=== PATIENT | male | born 1940 | race Caucasian/White ===

== ENCOUNTER → 2021-04-30 17:06 | Outpatient (CLI) | payer MEDICARE, OTHER, SELFPAY ==
--- NOTE | 2021-04-30 | IMM_PTH ---
PATIENT: [address]MA [address] LOC: [facility] U#:[id number] AGE/SX: 84/M ROOM: RE04/30/[address]: Dr. Kamar Payne MD : 1940 BED: DIS: SPEC #: [id number] RECD: 05/02/21 13:10 STATUS: SALVATORE REIsidoro #: [id number] BROOKE: 04/30/21 00:[address]: Kamar Payne DEPT: IMMUNOHISTOCHEMISTRY RECD BY: Bel Vidal ENTERED: 05/02/21 13:11 SP TYPE: IMMUNO OTHR DR: Dr. Weston Morris MD Tissues: D - PROSTATE LEFT E - PROSTATE LEFT Procedures: 34BE12 (add) P40 (add) 34BE12 (initial) PHYSICIAN & INSTITUTION [place] [id number] SPECIMEN INFORMATION: Tissue Source: D - Left prostate, apex, core biopsy, E - Left prostate, mid, core biopsy Clinical Info: R97.20 Specimen Number: CPT code: 03715, 31787 x3 METHODOLOGY: Deparaffinized sections of prefer/formalin-fixed tissue or PAP/DQ stained slides are incubated with monoclonal/polyclonal antibodies/oligonucleotide probes. Localization is made via biotin free immunoperoxidase method. Appropriate controls are performed and reacted as expected. Results on target cell population are indicated in the following table: RESULTS: ANTIBODY / CLONE RESULT Block D P40 (BC28) negative 34BE12 (34BE12) negative Block E P40 (BC28) positive 34BE12 (34BE12) positive These tests were developed and their performance characteristics determined by [facility]. They may not have been cleared or approved by the U.S. Food and Drug Administration. The FDA has determined that such clearance or approval is not necessary. The above immunohistochemical/dualISH markers are ordered and reviewed by the Pathologist. INTERPRETATION: D. Left prostate, apex, core biopsy: A minute focus of adenocarcinoma. E. Left prostate, mid, core biopsy: Negative for malignancy. SJ:ike 05/03/2021
--- NOTE | 2021-04-30 08:00 | PROSBIL_PTH ---
PATIENT: [address]MA [address] LOC: [facility]AN U#:[id number] AGE/SX: 84/M ROOM: RE04/30/[address]: Dr. Kamar Payne MD : 1940 BED: DIS: SPEC #: [id number] RECD: 04/30/21 16:35 STATUS: SALVATORE NEY #: [id number] BROOKE: 04/30/21 08:[address]: Kamar Payne DEPT: SURGICAL PATHOLOGY RECD BY: Ileana Yoder ENTERED: 05/01/21 09:36 SP TYPE: PROST BX JORGITO DR: Dr. Weston Morris MD Tissues: A - PROSTATE RIGHT B - PROSTATE RIGHT C - PROSTATE RIGHT D - PROSTATE LEFT E - PROSTATE LEFT F - PROSTATE LEFT Procedures: PROSTATE BX HEADER OPERATION: Prostate biopsy PRE-OP DIAGNOSIS: R97.20 TISSUE SUBMITTED: A - Right apex, B - Right mid, C - Right base, D - Left apex, E - Left mid, F - Left base MICROSCOPIC DIAGNOSIS A. Right prostate, apex, core biopsy: Prostatic adenocarcinoma. [place] grade: 3+4=7 Number of cores involved: 1/1 Proportion of tissue involved: ~70% Perineural invasion: Not identified. Greatest tumor length: 0.6 cm B. Right prostate, mid, core biopsy: Prostatic adenocarcinoma. Jacobo grade: 3+4=7 Number of cores involved: 1/1 Proportion of tissue involved: >90% Perineural invasion: Present. Greatest tumor length: 1 cm Acute and chronic inflammation. C. Right prostate, base, core biopsy: Prostatic adenocarcinoma. [place] grade: 4+3=7 Number of cores involved: 1/1 Proportion of tissue involved: ~60% Perineural invasion: Present. Greatest tumor length: 0.5 cm Acute and chronic inflammation. D. Left prostate, apex, core biopsy: A minute focus of prostatic adenocarcinoma. [place] grade: 3+3=6 Number of cores involved: 1/1 Proportion of tissue involved: <5% Perineural invasion: Not identified. Greatest tumor length: 0.1 cm Acute and chronic inflammation. See comment. E. Left prostate, mid, core biopsy: Prostatic tissue, negative for malignancy. Focal chronic inflammation. See comment. F. Left prostate, base, core biopsy: Prostatic adenocarcinoma. [place] grade: 3+4=7 Number of cores involved: 1/1 Proportion of tissue involved: ~15-20% Perineural invasion: Not identified. Greatest tumor length: 0.2 cm SJ:ike 05/02/2021 COMMENT D & E. Immunohistochemistry ([id number]) supports the above diagnosis. MICROSCOPIC DESCRIPTION Slides are reviewed. GROSS DESCRIPTION A - Received is one container designated prostate, right apex. The specimen consists of one elongated fragment of light hernandez-white soft tissue measuring 1 cm in length and 0.1 cm in diameter. The specimen is totally submitted in one cassette. B - Received is one container designated prostate, right mid. The specimen consists of one elongated fragment of light hernandez-white soft tissue measuring 1.2 cm in length and 0.1 cm in diameter. The specimen is totally submitted in one cassette. C - Received is one container designated prostate, right base. The specimen consists of one elongated fragment of light hernandez-white soft tissue measuring 1.2 cm in length and 0.1 cm in diameter. The specimen is totally submitted in one cassette. D - Received is one container designated prostate, left apex. The specimen consists of one elongated fragment of light hernandez-white soft tissue measuring 0.5 cm in length and 0.1 cm in diameter. The specimen is totally submitted in one cassette. E - Received is one container designated prostate, left mid. The specimen consists of one elongated fragment of light hernandez-white soft tissue measuring 0.7 cm in length and 0.1 cm in diameter. The specimen is totally submitted in one cassette. F - Received is one container designated prostate, left base. The specimen consists of one elongated fragment of light hernandez-white soft tissue measuring 1 cm in length and 0.1 cm in diameter. The specimen is totally submitted in one cassette. / MIKY:ike 05/01/21 TC:0 CPT: G0146
== END ==
PROVIDERS: PCP Family Medicine; Visit Provider Urology
DX: C61 Malignant neoplasm of prostate (principal); R97.20 Elevated prostate specific antigen [PSA]
CPT/HCPCS: 88305; 88341; 88342; G0416

== ENCOUNTER → 2021-05-13 07:43 | Outpatient (CLI) | payer MEDICARE, OTHER, SELFPAY ==
--- NOTE | 2021-05-13 07:50 | NM_ITS ---
CLINICAL: 80-year-old male with history of carcinoma of the prostate. WHOLE BODY 99m Tc MDP RADIONUCLIDE BONE SCINTIGRAPHY COMPARISON: None available FINDINGS: Following the intravenous administration of 24.1 mCi of 99m Tc MDP, whole body bone images reveal: 1. Increased radiopharmaceutical concentration is demonstrated in the mid cervical spine posteriorly on the right, acromioclavicular, sternoclavicular and glenohumeral compartments of both shoulders, wrist articulations bilaterally, the right and left knees, both ankles, left midfoot, bilateral forefoot, several thoracic vertebra to include the first, third and 10th thoracic vertebra posteriorly on the left and right, 12th thoracic vertebra posteriorly on the left, the left sacroiliac joint. 2. Mild facilitated uptake is observed in the left posterior lateral ninth rib. 3. The remaining skeletal structures are scintigraphically unremarkable with normal-appearing renal images and urinary bladder activity identified. NM/Bone Scan Whole Body IMPRESSION: 1. The increase in radiopharmaceutical concentration identified in the cervical and thoracic spine, left sacroiliac joint, bilateral shoulders and wrists, both knees, ankles bilaterally, the left midfoot, right-left forefoot is most consistent with degenerative arthritis. 2. Enhanced radiotracer distribution observed in the left posterior lateral ninth rib is most consistent with trauma-fracture. Electronically Signed: Jl Mora DO at 22:21 EST Tel , Service support ,
== END ==
PROVIDERS: PCP Family Medicine; Referring Provider Urology; Visit Provider Urology
DX: C61 Malignant neoplasm of prostate (principal)
CPT/HCPCS: 78306; A9503

== ENCOUNTER 2021-06-14 06:21 | Day surgery (SDC) | payer MEDICARE, SELFPAY ==
[2021-06-14 07:20] VITALS: BP 153/81; PULSE 78; RESP 18; TEMP 35.9; O2SAT 99; BMI 32.2
[2021-06-14] MEDS: Lactated Ringers 1,000 ML 15 ML IV (07:20)
--- NOTE | 2021-06-14 09:26 | PCM.HP.STD ---
HPI - General HPI Narrative [address], is a 80 M who presents for placement of gold markers and spacer gel for radiation therapy planning for recent diagnosis of prostate cancer [facility] Medical History (Updated 06/06/21 @ 13:34 by Sharona Garner) Alcohol use Cancer Cardiology follow-up encounter COPD (chronic obstructive pulmonary disease) Diabetes Dietary restriction Former smoker High cholesterol History of diverticulitis History of pain when walking History of stress test HTN (hypertension), benign Left carpal tunnel syndrome Leg cramps Loss of hearing Prostate cancer Restless legs Wears dentures Wears glasses Wears partial dentures Home Medications atorvastatin 10 mg tablet 10 mg PO DAILY 05/17/21 [History Last Taken Unknown] losartan 100 mg-hydrochlorothiazide 12.5 mg tablet 1 tab PO DAILY 05/17/21 [History Last Taken Unknown] metformin 500 mg tablet 500 mg PO TID 05/17/21 [History Last Taken Unknown] tamsulosin 0.4 mg capsule 0.8 mg PO DAILY 05/17/21 [History Last Taken Unknown] Dulera 2 puff INHALATION BID PRN 06/06/21 [History Last Taken Unknown] sulfamethoxazole-trimethoprim [Bactrim DS] 1 tab PO BID #14 tab 06/14/21 [Rx Last Taken Unknown] Allergy/AdvReac Type Severity Reaction Status Date / Time ENVIRONMENTAL Allergy Mild PT UNSURE Uncoded 06/14/21 07:19 OF REACTION Family History (Updated 05/17/21 @ 09:13 by Lakshmi Hays, RYAN) Brother Cancer CANCER IN HIS LYMPH NODES. (UNSURE OF PRIMARY) Mother Diabetes Surgical History (Updated 06/06/21 @ 13:34 by Sharona Garner) H/O neck surgery History of carpal tunnel surgery of left wrist Hx of colonoscopy Hx of left cataract extraction Hx of right cataract extraction Hx of tooth extraction S/P rotator cuff repair Social History (Updated 05/17/21 @ 09:14 by Lakshmi Hays, RYAN) adopted: No household members: none current occupational status: retired Smoking Status: Former smoker Tobacco: How many years used: 2 alcohol intake: current details: i DRINK FROM TIME TO TIME Vital Signs Vital Signs Vital Signs: 06/14/21 07:20 Temperature 96.7 F L Temperature Source Temporal Pulse Rate 78 Respiratory Rate 18 Respiratory Pattern Normal Blood Pressure 153/81 H Blood Pressure Mean 105 Blood Pressure Source Monitor Blood Pressure Position Sitting Blood Pressure Location Left Arm Pulse Ox 99 Oxygen Delivery Method Room Air Weight Weight: 99 kg Body Mass Index (BMI) 32.2
--- NOTE | 2021-06-14 09:26 | EX.PCM.DISCH ---
Discharge Instructions Procedure Urology Diet Discharge Diet: No restrictions Activity Discharge Activity: Return to Normal Activity and May Not Drive (while taking narcotic pain medications.) Dressing / Incision Call your doctor if you observe: Fever of 101 or Higher Follow Up Care Please Follow Up With: Kamar Payne MD When: Keep scheduled appt. Test Results: Test results from this visit will be discussed in further detail at your follow-up appointment, if applicable. Discharge Plan Admission Primary Reason for Your Visit: Gold markers and spacer gel Attending Provider: Kamar Payne Primary Care Provider: Weston Morris Discharge Orders/Prescriptions Prescriptions: New sulfamethoxazole-trimethoprim [Bactrim DS] 800-160 mg tablet 1 tab PO BID Qty: 14 RF: 0 Continued tamsulosin [Flomax] 0.4 mg capsule 0.8 mg PO DAILY RF: 0 metformin 500 mg tablet 500 mg PO TID RF: 0 losartan-hydrochlorothiazide 100-12.5 mg tablet 1 tab PO DAILY RF: 0 atorvastatin 10 mg tablet 10 mg PO DAILY RF: 0 Dulera 100-5 mcg/actuation Hfa Aerosol Inhaler 2 puff INHALATION BID PRN (Reason: COPD) RF: 0 Referrals / Follow Up: Weston Morris MD [Primary Care Provider] - Kamar Payne MD [STAFF PHYSICIAN] - Disposition Disposition (needs filled in before D/C Order can be placed): Home, Self Care
--- NOTE | 2021-06-14 09:49 | OP.PCM_ITS ---
Report of Operation Date of Procedure: 06/14/21 Pre-Operative Diagnosis: Prostate cancer, planning for radiation Post-Operative Diagnosis: The same Surgery/Procedure Performed:: Placement of gold fiducial markers in the prostate, placement of spacer organ at risk gel matrix Description of Surgical Findings:: Patient was taken back to the operating room after smooth induction of anesthesia he was placed supine on the table. The genitals and perineum were prepped and draped in usual sterile fashion. I then introduced a biplanar ultrasound probe into the rectum and performed ultrasonography and identified the Denonvilliers' fascia the prostate mid base and apex and seminal vesicles. The spacer gel mix was then prepared on the back table per manufactures instruction. Under ultrasound guidance in the midline perineum a bevel needle down we advanced through the perineum below the prostate into the space of Denonvilliers' fascia. This space which could be identified by ultrasound with a bright white layer between the prostate and the rectum. I then injected a puff of normal saline to identify the space further. After I confirmed that the needle was in the correct space in the mid prostate and the space of Denonvilliers' fascia between the rectum and the prostate. Then over the course of 15 seconds the gel matrix was injected slowly there was nice separation between the prostate and the rectum at the gel matrix was injected. The position of the gel matrix was confirmed by ultrasound. Then the injection needle was removed intact. The penis and testicles were prepped and draped in usual sterile fashion, ult rasound probe was placed into the rectum and biplanar ultrasound was performed on the prostate. Identified the base mid and apex of the prostate identified the transition zone prostate. Then using a needle the first spine specialist was placed into the right base of the prostate, the second spine specialist was placed in the left base of the prostate, and the third core marker was placed in the right apex of the prostate after all 3 markers were placed the placement of the markers were confirmed by ultrasonography. Surgeon: kaci Type of Anesthesia: General Drains: none Admit VTE Documentation VTE Present on Admission: No VTE Mechan Device Prophylaxis: SCD's VTE Pharm Prophylaxis ordered?: No
[2021-06-14 10:01] VITALS: BP 127/82; BP 153/81; PULSE 71; RESP 16; TEMP 36.2; O2SAT 97
[2021-06-14 10:15] VITALS: BP 133/79; BP 153/81; PULSE 66; RESP 16; O2SAT 99
[2021-06-14 10:30] VITALS: BP 138/77; BP 153/81; PULSE 65; RESP 16; O2SAT 98
[2021-06-14 10:32] VITALS: BP 138/75; BP 153/81; PULSE 65; RESP 16; TEMP 37; O2SAT 98
[2021-06-14 10:50] VITALS: BP 132/84; BP 153/81; PULSE 78; RESP 16; O2SAT 98
== END 2021-06-14 23:59 | disposition home or self-care (01) ==
LOC: SDC 06:29 → AC 06:30
PROVIDERS: PCP Family Medicine; Referring Provider Urology; Visit Provider Urology
PROC: (CPT 55874; principal; 2021-06-14 08:40)
DX: C61 Malignant neoplasm of prostate (principal); J44.9 Chronic obstructive pulmonary disease, unspecified; E11.9 Type 2 diabetes mellitus without complications; N40.1 Benign prostatic hyperplasia with lower urinary tract symptoms; R35.1 Nocturia; R32 Unspecified urinary incontinence; R35.0 Frequency of micturition; R97.20 Elevated prostate specific antigen [PSA]; I10 Essential (primary) hypertension; E78.00 Pure hypercholesterolemia, unspecified; Z79.84 Long term (current) use of oral hypoglycemic drugs; Z79.51 Long term (current) use of inhaled steroids; Z87.891 Personal history of nicotine dependence; Z79.899 Other long term (current) drug therapy
CPT/HCPCS: 55876; 55874; 00400; J7120; J2405

== ENCOUNTER 2021-06-21 16:22 | Outpatient (CLI) | payer MEDICARE, SELFPAY ==
--- NOTE | 2021-06-21 17:15 | MRI_ITS ---
STUDY: MR PELVIS WITH T WITHOUT CONTRAST REASON FOR EXAM: Male, 80 years old. Technologist Notes PROSTATE CANCER. PLANNING FOR THERAPY. . TECHNIQUE: Standardized fat and water weighted pulse sequences were obtained in all 3 orthogonal planes, pre-and post contrast administration. with and without IV 20mL Dotarem contrast material was administered intravenously for the contrast portion of the examination. COMPARISON: CT DONE TODAY. FINDINGS: Normal urinary bladder. There are multiple colonic diverticula of the sigmoid colon consistent with chronic diverticulosis. SpaceOAR System is noted between the rectum and prostate gland. It has high T2 signal and a gel like appearance. There is no extra capsular extension. There are no abnormal lymph nodes. There is a multicystic lesion of the right pectineus muscle. This has the signal characteristics of a cyst and measures 21 mm. Prostate gland: The central gland demonstrates heterogeneous signal characteristics. Rectum is unremarkable. Levator ani muscle is not disrupted. The distal urethra is surrounded by the low T2 signal intensity muscle which is the external urethral sphincter as noted on the coronal images. The penile bulb is embraced by an intact inferomedial levator ani muscle. Normal visualized neurovascular bundles. There is a suspicious area of low T2 signal in the right central zone which extends to the right peripheral zone. This measures 8 x 7 x 13 mm. Series 5 image 15. This has increased DWI and low ADC signal. There is a 8 mm x 6 mm area of low T2 signal in the left lateral central zone. This has increased DWI and low ADC signal. Se 5 IM: 19. There is no pelvic fluid. There is no pelvic mass lesion or lymphadenopathy. There is diffuse atherosclerotic calcification of the pelvic arteries. There are diffuse degenerative changes of the visualized lumbar spine. Normal abdominal wall. MRI/Pelvis W/WO Contrast IMPRESSION: There is a suspicious area of low T2 signal in the right central zone which extends to the right peripheral zone. There is a suspicious area of low T2 signal in the left lateral central zone. These may represent neoplasm. There is a multicystic lesion of the right pectineus muscle. This has the signal characteristics of a cyst and measures 21 mm. Electronically Signed: Lebron Spicer MD at 21:00 EST , Service support ,
== END 2021-06-21 23:59 | disposition short-term general hospital (02) ==
PROVIDERS: PCP Family Medicine; Referring Provider Student in an Organized Health Care Education/Training Program; Visit Provider Student in an Organized Health Care Education/Training Program
DX: C61 Malignant neoplasm of prostate (principal)
CPT/HCPCS: 72197; A9575; A4216

== ENCOUNTER → 2022-02-26 | Outpatient (CLI) | payer MEDICARE, SELFPAY ==
[2022-02-26 12:51] LABS: PSA,Total- Diagnostic < 0.01 ng/mL (0.0-4.0)
== END | disposition home or self-care (01) ==
PROVIDERS: PCP Family Medicine; Referring Provider Urology; Visit Provider Urology
DX: C61 Malignant neoplasm of prostate (principal)
CPT/HCPCS: 36415; 84153

== ENCOUNTER → 2023-08-04 | Outpatient (CLI) | payer MEDICARE, SELFPAY ==
[2023-08-04 10:02] LABS: PSA,Total- Diagnostic < 0.01 ng/mL (0.0-4.0)
== END | disposition home or self-care (01) ==
PROVIDERS: PCP Family Medicine; Referring Provider Urology; Visit Provider Urology
DX: C61 Malignant neoplasm of prostate (principal)
CPT/HCPCS: 36415; 84153